=== PATIENT | female | born 1960 | race Caucasian/White ===

== ENCOUNTER 2016-10-26 19:10 | Emergency (ER) | payer OTHER ==
[~2016-10-26] VITALS: Ht 167.6 cm; Wt 97.0 kg
[~2016-10-26 19:10] MED LIST: ACET1TAB40 PO; BACTDS PO; BEN25 PO; CEPH-443 PO; HYDR-842 PO
[2016-10-26 19:32] VITALS: Ht 167.6 cm; Wt 97.0 kg
[2016-10-26] MEDS ORDERED: AMO500 PO (20:52)
[2016-10-26] MEDS ORDERED: ACET500C5 PO (20:53)
[2016-10-26] MEDS ORDERED: BENZ100C70 PO (20:53)
--- NOTE | 2016-10-26 20:58 | ERD ---
ER Documentation Chief Complaint Date/Time DATE: 10/26/16 TIME: 20:54 Chief Complaint CONGESTION, SORE THROAT, PRODUCTIVE COUGH AND SUB FEVERS X 2 DAYS HPI Patient is a 56-year-old female who presents to the ED with sore throat, nasal congestion, productive cough and tactile fevers at home for 3 days. She states that she has not had sick contacts. She denies chest pain, shortness of breath or difficulty breathing. She denies abdominal pain, nausea, vomiting or diarrhea. She denies headache or weakness or dizziness. She states that she has been taking amoxicillin yesterday and today but ran out. She is not taking any other medications. She denies leg pain or swelling. ROS All systems reviewed and are negative except as per history of present illness. Medications Home Meds Active Scripts Acetaminophen* (Tylophen*) 500 Mg Capsule, 1 CAP PO Q6H Y for PAIN AND OR ELEVATED TEMP, #20 CAP Prov:MELI VALLE-C 10/26/16 Benzonatate* (Tessalon Perle*) 100 Mg Capsule, 100 MG PO Q8H Y for COUGH for 14 Days, CAP Prov:MELI VALLE-C 10/26/16 Amoxicillin* (Amoxicillin*) 500 Mg Cap, 500 MG PO BID for 7 Days, CAP Prov:MELI VALLE-C 10/26/16 Diphenhydramine Hcl* (Benadryl*) 25 Mg Cap, 25 MG PO Q6, #20 CAP Prov:JULIO,AISSATOU DO 04/14/15 Cephalexin* (Keflex*) 500 Mg Capsule, 500 MG PO QID for 7 Days, CAP Prov:JULIOAISSATOU DO 04/14/15 Sulfamethoxazole-Trimethoprim* (Bactrim* DS) 800-160 Mg Tab, 1 TAB PO BID for 7 Days, TAB Prov:JULIOAISSATOU DO 04/14/15 Hydroxyzine Hcl* (Atarax*) 25 Mg Tab, 25 MG PO Q6H Y for ITCHING, #60 TAB Prov:JESUS SALVADOR 04/05/15 Acetaminophen-Codeine* (Acetaminophen-Cod #3*) 300-30 Mg Tab, 1 TAB PO Q4H Y for PAIN, #20 TAB Prov:JESUS SALVADOR 04/05/15 Allergies Allergies: Coded Allergies: No Known Drug Allergies (Verified Allergy, Mild, 09/02/14) PMhx/Soc Anesthesia Reaction: No Hx Neurological Disorder: No Hx Respiratory Disorders: No Hx Cardiac Disorders: No Hx Psychiatric Problems: No Hx Miscellaneous Medical Probl: Yes (Gastritis) Hx Alcohol Use: No Hx Substance Use: No Hx Tobacco Use: No Smoking Status: Never smoker Physical Exam Vitals Vital Signs Date Time Temp Pulse Resp B/P Pulse Ox O2 Delivery O2 Flow Rate FiO2 10/26/16 19:32 97.7 85 18 123/64 99 Physical Exam GENERAL: Well-developed, well-nourished female Appears in no acute distress. HEAD: Normocephalic, atraumatic. EYES: Pupils are equally reactive bilaterally. EOMs grossly intact. No conjunctival erythema. ENT: Moist mucous membranes. No uvula deviation. No kissing tonsils. No exudates. NECK: Supple. No lymphadenopathy or thyromegaly. No meningismus. negative kernig. negative brudinski. LUNG: Clear to auscultation bilaterally. No rhonchi, wheezing, rales or coarse breath sounds. HEART: Regular rate and rhythm. No murmurs, rubs or gallops. Extremities: Equal pulses bilaterally. No peripheral clubbing, cyanosis or edema. No unilateral leg swelling. NEUROLOGIC: Alert and oriented. Moving all four extremities. 5/5 strength in all extremities. Normal speech. Steady gait. SKIN: Normal color. Warm and dry. No rashes or lesions. Capillary refill < 2 seconds Procedures/MDM ER COURSE: I kept the patient and/or family informed of laboratory and diagnostic imaging results throughout the emergency room course. MEDICAL DECISION MAKING: This is a 56-year-old female who presents with cough, sore throat and runny. Vital signs were reviewed. Patient is afebrile. Patient is not hypoxic. Patient has a URI of viral etiology versus bacterial. Low suspicion for pneumonia, PE, pneumothorax, ACS, epiglottitis, obstruction, TB, pertussis, meningitis, sepsis. Low suspicion for peritonsillar abscess, strep pharyngitis, mononucleosis, dental abscess. Low suspicion for ACS, PE, AAA, dissection, DVT. I will be sending the patient home with a dose of amoxicillin as patient has been taking it for 2 days and should continue taking it do not build resistance. DISCHARGE: At this time, patient is stable for discharge and outpatient management with no new complaints during the ER course. Patient was sent home with amoxicillin, Tylenol, Tessalon Perles. Patient will be discharged home with instructions to recheck for new or worsening symptoms such as fever, nausea, weakness, LOC and to follow up with primary care in the next 1-2 days. Patient was advised to return to the ER for any new or worsening symptoms. Plan was discussed and patient and/or family understands and agrees. Home instructions were given. Departure Diagnosis: Primary Impression: Upper respiratory infection URI type: unspecified URI Qualified Code: J06.9 - Upper respiratory tract infection, unspecified type Condition: Stable Patient Instructions: Preventing Common Respiratory Infections Referrals: JAIMIE ENGEL MD (PCP) Additional Instructions: Llame al doctor MAANA y walt juwan SILVIA PARA DENTRO DE 1-2 BEASLEY.Dgale a la secretaria que nosotros le instruimos hacer esta silvia.Avise o llame si gonzales condicin se empeora antes de la silvia. Regresa aqui si peor o no mejor. MELI VALLE PA-C Oct 26, 2016 20:58
[2016-10-26 21:07] VITALS: BP 123/65; PULSE 76; RESP 18; TEMP 98
== END 2016-10-26 21:05 | disposition home or self-care (01) ==
LOC: FTE 19:10
DX: J06.9 Acute upper respiratory infection, unspecified (principal)
CPT/HCPCS: 99284

== ENCOUNTER 2018-03-27 19:26 | Emergency (ER) | END 2018-03-27 22:19 | disposition home or self-care (01) ==